=== PATIENT | female | born 1960 | race American Indian/Alaskan Native ===

== ENCOUNTER 2017-05-01 13:31 | Outpatient (CLI) | payer BC ==
--- NOTE | 2017-05-01 15:20 | Mammography Report ---
BILATERAL MAMMOGRAM: FINDINGS: The breast tissue is heterogeneously dense, which could obscure detection of small masses (approximately 50%-75% glandular). No mass, distortion, suspicious calcification, or skin change is seen. No significant change when compared to exams dating back to 2015. CAD was utilized. IMPRESSION: Negative mammogram. There is no mammographic evidence of malignancy. RECOMMENDATION: Follow-up per ACS guidelines. BI-RADS CATEGORY: 1 = Negative ACR BI-RADS MAMMOGRAPHIC CODES: 0 = Needs additional imaging evaluation; 1 = Negative; 2 = Benign; 3 = Probably benign; 4 = Suspicious; 5 = Malignant; 6 = Known biopsy-proven malignancy COMMENT: 1. Dense breast tissue, i.e., adenosis, fibrocystic changes, etc., may obscure an underlying neoplasm. 2. Approximately 10% of cancers are not detected with mammography. 3. A negative mammography report should not delay biopsy if a clinically suspicious mass is present. COMMENT: Patient follow-up letters are generated in [employer].
== END 2017-05-01 13:32 | disposition home or self-care (01) ==
LOC: SPVWC 13:31
PROVIDERS: ATTEND Internal Medicine
DX: Z12.31 Encounter for screening mammogram for malignant neoplasm of breast (principal)
CPT/HCPCS: 77067; G0202

== ENCOUNTER 2017-12-16 03:20 | Emergency (ER) | payer BC ==
[2017-12-16] MEDS ORDERED: ZOFRAN ODT PO ONE (04:30)
[2017-12-16] MEDS ORDERED: ZOFRAN ODT ONE (04:34)
--- NOTE | 2017-12-16 05:39 | Cat Scan Report ---
FINAL REPORT EXAM: CT HEAD/BRAIN WO CON HISTORY: nausea, dizziness s/p head injury TECHNIQUE: Routine axial imaging was obtained of the brain without IV contrast. FINDINGS: The ventricular system is appropriate in size and is symmetric. There is no evidence of acute stroke or hemorrhage. The basal cisterns appear normal. The sinuses reveal mild mucosal thickening in the frontal and ethmoid air cells. The mastoid air cells are well pneumatized. The calvarium shows no evidence of fracture. IMPRESSION: No acute intracranial process. Very mild mucosal thickening in the anterior ethmoid air cells bilaterally and left frontal air cells.
--- NOTE | 2017-12-16 10:17 | Emergency Department Report ---
Head Injury w/o Laceration - HPI Chief Complaint: Head Injury Stated Complaint: HIT IN THE HEAD WITH EQUIPMENT Time Seen by Provider: 12/16/17 09:40 Occurred When: Today Mechanism: Direct Blow Location: Frontal Severity: severe Head Inj w/o Lac: Yes Loss of Consciousness, Yes Nausea, Yes Headache, Yes Focal Deficit (weakness to BUE and BLE), No Blurred Vision, No Altered Mental Status, No Swelling, No Bruising, No Break in Skin, No Bleeding Other History: This is a 57 y.o. female that presents with pain to right side of face from equipment hitting head this morning around 0100. Patient work at [employer] and a coworker was removing packages from a large equipment in mailroom and the front door opened and hit her in the head on the right front side. Patient reports LOC, all she remember was seeing black and blue lights. Her co-workers helped her sit in a chair because she was so weak. She can move upper and lower extremity but it is hard to write or walk due to weakness. She is feeling very nauseous but have not vomited. Her neice is here with her and reports having to help with transfers into wheelchair because she can't walk. Denies visual changes, chest pain, SOB, memory loss, or chest pain. ED General PMH - Social History Smoking Status: Never Smoker ED Neuro ROS - Review of Systems Constitutional: weakness (BUE & BLE) Eyes (ROS): denies: no symptoms reported, see HPI, blindness, blurred vision, vision change, drainage, decreased acuity, foreign body sensation, inflammation , pain, photophobia, previous injury, shadows, tunnel vision, contact lenses, glasses, other Ears, Nose, Mouth, Throat: denies: no symptoms reported, see HPI, ear pain, ear discharge, nose pain, nose discharge, epistaxis, mouth pain, mouth swelling, loose teeth, throat pain, throat swelling Respiratory: no symptoms reported Cardiology: no symptoms reported Gastrointestinal/Abdominal: no symptoms reported Musculoskeletal: other (right frontal scalp pain and right side facial pain) Skin: denies: no symptoms reported, see HPI, change in color, change in hair/ nails, dryness, lesions, lumps, rash, other Head Injury W/O Lac Exam - Exam General: Vital signs noted. No distress. Alert and acting appropriately. Head: Yes Pupils are PERRL, No Hemotympanum, No Hematoma/Ecchymosis, No Epistaxis, No Stepoff/Deformity, No Laceration, No Abrasion Chest, Abd, & Ext: Yes Clear Lung Sounds, Yes Regular Heart Rhythm, No Neck Pain , No Chest Injury/Pain, No Heart Murmur, No Abdominal Tenderness, No Back Tenderness, No Extremity Injury Neuroligical (Head Inj W/O Lac: Yes Focal Weakness, Yes Normal Speech, No Lethargy, No Disorientation, No Focal Numbness, No Normal Gait ED Critical Care Note - Critical Care Note Comments: This is a 57 y.o. female that presents with right side facial pain from equipment falling on her at work. Patient is stable and examined by me. CT of head obtained an no acute intracranial process. Very mild mucosal thickening in the anterior ethmoid air cells bilaterally and left frontal air cells. Vitals stable. Discussed plan to discharge home and f/u with PCP in 24-48 hours for concussion syndrome. Patient agrees to ED plan of care. Discharged home with mild weakness. Follow up with PCP in 24 hours. ED Disposition Clinical Impression: Weakness of both upper extremities, Weakness of both lower extremities, Concussion syndrome Disposition: TO HOME OR SELFCARE Is pt being admited?: No Does the pt Need Aspirin: No Condition: Stable Instructions: Concussion (ED), Minor Head Injury (ED), Weakness (ED) Additional Instructions: Refrain from physical and cognitive activities for the first 24 to 48 hours, and for up to 7 days, with a gradual return to regular activities thereafter. Provided that symptoms are not aggravated by increasing physical or cognitive load. Follow up with primary care provider Blane Gong in 24 hours. Prescriptions: Naproxen 500 mg PO TID PRN #20 tablet PRN Reason: Pain Referrals: LONA TURNER MD [Staff Physician] - 3-5 Days [facility] [Provider Group] - 3-5 Days [facility] [Provider Group] - 3-5 Days Forms: Work/School Release Form(ED) Time of Disposition: 11:27 Print Language: THAI
[2017-12-16 10:43] VITALS: BP 134/89
== END 2017-12-16 11:45 | disposition home or self-care (01) ==
LOC: ED 03:20
DX: F07.81 Postconcussional syndrome (principal); R53.1 Weakness
CPT/HCPCS: 70450; Q0162

== ENCOUNTER 2018-05-03 08:23 | Outpatient (CLI) | payer BC ==
--- NOTE | 2018-05-04 11:56 | Mammography Report ---
BILATERAL DIGITAL SCREENING MAMMOGRAM with CAD: 05/03/18 08:23:00 CLINICAL: Routine screening. COMPARISON:05/01/17 FINDINGS: There are bilateral scattered fibroglandular densities. A left outer asymmetry on the CC view requires additional imaging.No architectural distortion or suspicious calcifications.The right breast is negative. IMPRESSION: Left asymmetry requiring further workup. BI-RADS CATEGORY: 0 -- Additional Imaging Evaluation Required RECOMMENDATION: Recall for left mediolateral and spot magnification CC views and left breast ultrasound if needed. ACR BI-RADS MAMMOGRAPHIC CODES: 0 = Needs additional imaging evaluation; 1 = Negative; 2 = Benign; 3 = Probably benign; 4 = Suspicious; 5 = Malignant; 6 = Known biopsy-proven malignancy COMMENT: 1. Dense breast tissue, i.e., adenosis, fibrocystic changes, etc., may obscure an underlying neoplasm. 2. Approximately 10% of cancers are not detected with mammography. 3. A negative mammography report should not delay biopsy if a clinically suspicious mass is present. COMMENT: Patient follow-up letters are generated via our [email or web address] application.
== END 2018-05-03 08:24 | disposition home or self-care (01) ==
LOC: SPVWC 08:23
PROVIDERS: ATTEND Internal Medicine
DX: Z12.31 Encounter for screening mammogram for malignant neoplasm of breast (principal)
CPT/HCPCS: 77067

== ENCOUNTER 2018-07-06 09:11 | Outpatient (CLI) | payer BC ==
--- NOTE | 2018-07-06 09:52 | Mammography Report ---
LEFT DIGITAL DIAGNOSTIC MAMMOGRAM : 07/06/18 09:11:00 CLINICAL: Recalled for asymmetry. COMPARISON:05/03/18 screening FINDINGS: Additional mammographic views were performed and are negative. IMPRESSION: Negative Mammogram. BI-RADS CATEGORY: 1 -- Negative RECOMMENDATION: Routine mammographic screening in one year. ACR BI-RADS MAMMOGRAPHIC CODES: 0 = Needs additional imaging evaluation; 1 = Negative; 2 = Benign; 3 = Probably benign; 4 = Suspicious; 5 = Malignant; 6 = Known biopsy-proven malignancy COMMENT: 1. Dense breast tissue, i.e., adenosis, fibrocystic changes, etc., may obscure an underlying neoplasm. 2. Approximately 10% of cancers are not detected with mammography. 3. A negative mammography report should not delay biopsy if a clinically suspicious mass is present. COMMENT: Patient follow-up letters are generated via our [email or web address] application.
== END 2018-07-06 09:12 | disposition home or self-care (01) ==
LOC: SPVWC 09:11
PROVIDERS: ATTEND Internal Medicine
DX: R92.8 Other abnormal and inconclusive findings on diagnostic imaging of breast (principal)

== ENCOUNTER 2019-06-24 08:48 | Outpatient (CLI) | payer BC ==
--- NOTE | 2019-06-28 12:15 | Mammography Report ---
DIGITAL SCREENING MAMMOGRAM WITH CAD, 06/24/2019 INDICATION: Routine screening mammography. TECHNIQUE: Digital bilateral 2D mammography was obtained in the craniocaudal and mediolateral obliq ue projections. This examination was interpreted with the benefit of Computer-Aided Detection analysi s. COMPARISON: 05/03/2018 FINDINGS: Breast Density: There are scattered areas of fibroglandular density. There is no evidence of dominant mass, suspicious calcifications or architectural distortion in eithe r breast. Bilateral benign calcifications. IMPRESSION: No mammographic evidence of malignancy. Follow up recommendation: Routine yearly BI-RADS Category 2: Benign. A "normal" or negative report should not discourage follow up or biopsy of a clinically significant f inding. A written summary of these findings will be mailed to the patient. The patient will be entered into a mammography reporting system which will generate a reminder letter for the patient's next appointmen t at the appropriate interval. The [employer] recommends yearly mammograms starting at age 40 and continuing as l lance as a woman is in good health. Breast MRI is recommended for women with an approximate 20-25% or greater lifetime risk of breast cancer, including women with a strong family history of breast or ova rosendo cancer or who have been treated for Hodgkin's disease. Signer Name: Bayron Smith MD Signed: 06/28/2019 12:11 PM Workstation Name: [id number]
== END 2019-06-24 08:49 | disposition home or self-care (01) ==
LOC: SPVWC 08:48
PROVIDERS: ATTEND Internal Medicine
DX: Z12.31 Encounter for screening mammogram for malignant neoplasm of breast (principal)
CPT/HCPCS: 77067

== ENCOUNTER 2020-06-21 08:08 | Outpatient (CLI) | payer MEDICARE ==
--- NOTE | 2020-06-21 10:08 | Mammography Report ---
DIGITAL SCREENING MAMMOGRAM WITH CAD, 06/21/2020 INDICATION: Routine screening mammography. SCREENING MAMMOGRAM TECHNIQUE: Digital bilateral 2D mammography was obtained in the craniocaudal and mediolateral obliq ue projections. This examination was interpreted with the benefit of Computer-Aided Detection analysi s. COMPARISON: 06/24/2019 FINDINGS: Breast Density: There are scattered areas of fibroglandular density. There is no evidence of dominant mass, suspicious calcifications or architectural distortion in eithe r breast. Left surgical biopsy changes are stable. Bilateral calcifications are stable. IMPRESSION: No evidence of malignancy Follow up recommendation: Routine yearly BI-RADS Category 2: Benign. A "normal" or negative report should not discourage follow up or biopsy of a clinically significant f inding. A written summary of these findings will be mailed to the patient. The patient will be entered into a mammography reporting system which will generate a reminder letter for the patient's next appointmen t at the appropriate interval. The [employer] recommends yearly mammograms starting at age 40 and continuing as l lance as a woman is in good health. Breast MRI is recommended for women with an approximate 20-25% or greater lifetime risk of breast cancer, including women with a strong family history of breast or ova rosendo cancer or who have been treated for Hodgkin's disease. Signer Name: Prosper Dennis MD Signed: 06/21/2020 10:03 AM Workstation Name: [id number]
== END 2020-06-21 08:09 | disposition home or self-care (01) ==
LOC: SPVWC 08:08
PROVIDERS: ATTEND Internal Medicine
DX: Z12.31 Encounter for screening mammogram for malignant neoplasm of breast (principal)
CPT/HCPCS: 77067